=== PATIENT | male | born 1985 | race Caucasian/White ===

== ENCOUNTER 2017-04-22 20:55 | Emergency (ER) | payer SELFPAY ==
[~2017-04-22] VITALS: Ht 172.7 cm; Wt 97.0 kg
[2017-04-22 20:56] VITALS: BP 140/88
[2017-04-22] MEDS ORDERED: AZITHROMYCIN 500 MG TABLET PO ONE (21:30)
[2017-04-22] MEDS ORDERED: CEFTRIAXONE 250 MG IM ONE (21:30)
[2017-04-22 21:45] LABS: HEMATOCRIT 46.6 % (39.2-51.8); HEMOGLOBIN 15.7 g/dL (13.7-18.0); WHITE BLOOD COUNT 7.1 x10^3/uL (3.4-10)
[2017-04-22] MEDS ORDERED: CEFTRIAXONE 250 MG ONE (21:45)
[2017-04-22] MEDS ORDERED: AZITHROMYCIN 250 MG TABLET ONE (21:46)
[2017-04-22 21:55] LABS: BLOOD UREA NITROGEN 12 mg/dL (7-18)
== END 2017-04-22 22:14 | disposition home or self-care (01) ==
LOC: ED 21:46
DX: L03.115 Cellulitis of right lower limb (principal); R30.0 Dysuria
CPT/HCPCS: 36415; 73630; 80048; 81003; 82040; 84550; 85025; 87491; 87591; 96372; 99285; J0696

== ENCOUNTER 2017-04-30 17:46 | Emergency (ER) | payer SELFPAY ==
[~2017-04-30] VITALS: Ht 172.7 cm; Wt 90.9 kg
[2017-04-30 17:47] VITALS: BP 146/94
== END 2017-04-30 18:32 | disposition home or self-care (01) ==
LOC: ED 18:26
DX: L03.031 Cellulitis of right toe (principal); B35.3 Tinea pedis
CPT/HCPCS: 99283